=== PATIENT | male | born 1970 | race Caucasian/White ===

== ENCOUNTER 2017-05-25 14:00 | Emergency (ER) | payer BC, OTHER ==
[2017-05-25 14:18] VITALS: BMI 29.0
[2017-05-25 15:57] LABS: MCH 32.8 pg (25.7-33.7); MCHC 34.6 g/dl (32.0-35.9); MEAN CELL VOLUME 94.6 fl (80-96); MEAN PLT VOLUME 8.1 fl (7.5-11.1); PLATELET COUNT 159 K/MM3 (134-434); RDW 12.7 % (11.9-15.9); WHITE BLOOD COUNT 9.6 K/mm3 (4.0-10.0)
--- NOTE | 2017-05-25 16:05 | PDOC ---
History of Present Illness - General Chief Complaint: Pain, Acute Stated Complaint: ABD PAIN,FEVER,CHILLS Time Seen by Provider: 05/25/17 15:20 History Source: Patient - History of Present Illness Initial Comments: 05/25/17 16:27 Patient is a 46 y.o. male with a PMH of Diverticulitis (April 2017 hospitalization for perforated abscess) who presents to our ED today c/o subjective fever and LLQ abdominal pain that he noticed when he woke up @ 10 a.m. Patient denies any associated nausea/vomiting or diarrhea. Patient notes since his discharge he has been slowing advancing his diet -- toleating solid foods as of last night (pork chops and corn). NKDA Surgical: Tonsillectomy (childhood) Social: denies cigarettes, 3-4 beers nightly, denies recreational drugs PMD: Dr. Fish Past History - Past Medical History Allergies/Adverse Reactions: Allergies Allergy/AdvReac Type Severity Reaction Status Date / Time No Known Allergies Allergy Verified 05/25/17 14:16 Home Medications: Ambulatory Orders No Home Medications 0 dose .ROUTE UTDICT 07/08/12 Levofloxacin [Levaquin -] 500 mg PO DAILY #7 tablet 05/25/17 Metronidazole [Flagyl -] 500 mg PO BID #14 tablet 05/25/17 COPD: No GI Disorders: Yes (Diverticulitis) - Suicide/Smoking/Psychosocial Hx Smoking Status: No Smoking History: Never smoked Number of Cigarettes Smoked Daily: 0 Information on smoking cessation initiated: No Hx Alcohol Use: Yes (SOCIAL) Drug/Substance Use Hx: No Substance Use Type: None Review of Systems - Review of Systems Constitutional: Yes: Chills, Fever Respiratory: No: Shortness of Breath Cardiac (ROS): No: Chest Pain ABD/GI: Yes: Abdominal cramping. No: Constipated, Diarrhea, Rectal Bleeding, Vomiting : No: Burning, Dysuria *Physical Exam - Vital Signs Last Vital Signs Temp Pulse Resp BP Pulse Ox 100.4 F H 117 H 19 110/74 100 05/25/17 14:16 05/25/17 14:16 05/25/17 14:16 05/25/17 14:16 05/25/17 15:11 - Physical Exam General Appearance: Yes: Nourished, Appropriately Dressed Neck: positive: Trachea midline, Supple Respiratory/Chest: positive: Lungs Clear, Normal Breath Sounds. negative: Labored Respiration, Rapid RR Cardiovascular: positive: S1, S2. negative: Edema, JVD Gastrointestinal/Abdominal: positive: Normal Bowel Sounds, Soft, Tenderness ( midline LQ tenderness on deep palpation). negative: Distended, Guarding, Hernia , Mass Musculoskeletal: negative: CVA Tenderness (R), CVA Tenderness (L) Extremity: positive: Normal Capillary Refill, Normal Inspection Neurologic: positive: Fully Oriented, Alert ED Treatment Course - LABORATORY CBC & Chemistry Diagram: 05/25/17 15:53 05/25/17 15:53 Medical Decision Making - Medical Decision Making 05/25/17 16:51 Patient is a 46 y.o. male with a PMH of diverticulitis w/perforated abscess ( April 2017) who presents with subjective fever and acute onset of midline, lower quadrant abdominal pain. On PE patient is febrile with some midline LQ tenderness on deep palpation. As patient has recent h/o diverticulitis w/ abscess, clinical suspicion for diverticulitis vs. gastritis (less likely given fever) PLAN: 1. CBC, CMP, Lipase, Lactate 2. CT Abdomen w/PO + IV contrast Reassess 05/25/17 19:02 At time of signout - read pending on CT, wet read shows some possible inflammation (diverticulitis) - no appreciable abscess. Patient signed out to Dr. Garvey (Attending) as no resident overnight due to conference tomorrow. *DC/Admit/Observation/Transfer Diagnosis at time of Disposition: Diverticulitis - Discharge Dispostion Disposition: HOME Condition at time of disposition: Stable - Prescriptions Prescriptions: Levofloxacin [Levaquin -] 500 mg PO DAILY #7 tablet Metronidazole [Flagyl -] 500 mg PO BID #14 tablet - Referrals Referrals: Mago Fish MD [Primary Care Provider] - - Patient Instructions Printed Discharge Instructions: DI for Diverticulitis Additional Instructions: Please follow up with Dr. Fish. Call him tomorrow for follow up appointment. He advised to a liquid diet for three days and increase as tolerated. Return if any problems. Avoid alcohol or anything alcohol when taking Flagyl. - Post Discharge Activity
[2017-05-25 16:23] LABS: ANION GAP 12 (8-16); BILIRUBIN,TOTAL 1.3 mg/dL (0.2-1.0); CALCIUM 9.1 mg/dL (8.5-10.1); CO2 25 mmol/L (21-32); CREATININE 0.9 mg/dL (0.7-1.3); GLUCOSE,RANDOM 96 mg/dL (74-106); SGOT/AST 22 U/L (15-37); SGPT/ALT 49 U/L (12-78)
[2017-05-25 16:24] LABS: ALK PHOS 56 U/L (45-117)
[2017-05-25 18:49] LABS: URINE APPEARANCE CLEAR; URINE BILIRUBIN NEGATIVE (NEGATIVE); URINE BLOOD NEGATIVE (NEGATIVE); URINE COLOR DKYELLOW; URINE GLUCOSE (UA) NEGATIVE (NEGATIVE); URINE KETONE NEGATIVE (NEGATIVE); URINE LEUK ESTERASE NEGATIVE (NEGATIVE); URINE NITRITE NEGATIVE (NEGATIVE); URINE PROTEIN NEGATIVE (NEGATIVE); URINE UROBILINOGEN NEGATIVE mg/dL (0.2-1.0)
--- NOTE | 2017-05-25 19:30 | PDOC ---
Attending Attestation - Resident Resident Name: Concha Waddell - ED Attending Attestation I have performed the following: I have examined & evaluated the patient, The case was reviewed & discussed with the resident, I agree w/resident's findings & plan, Exceptions are as noted - HPI HPI: 05/25/17 19:25 46 M with h/o diverticulitis c/b abscess and perf 04/2017, s/p course of abx, presenting today with fevers and LLQ pain. Pt states that his symptoms subsided with antibiotics, and he was gradually advancing his diet. Yesterday, he had a meal of pork chops, which he is worried may have exacerbated his symptoms. Pain began this morning with no associated N/V. No diarrhea. - Physicial Exam PE: 05/25/17 19:29 "GENERAL: Awake, alert, and fully oriented, in no acute distress HEAD: No signs of trauma EYES: PERRLA, EOMI, sclera anicteric, conjunctiva clear ENT: Auricles normal inspection, hearing grossly normal, nares patent, oropharynx clear without exudates. Moist mucosa NECK: Nontender, no stepoffs, Normal ROM, supple, no lymphadenopathy, JVD, or masses LUNGS: Breath sounds equal, clear to auscultation bilaterally. No wheezes, and no crackles HEART: Regular rate and rhythm, normal S1 and S2, no murmurs, rubs or gallops ABDOMEN: +LLQ tenderness, normoactive bowel sounds. No guarding, no rebound. No masses EXTREMITIES: Normal range of motion, no edema. No clubbing or cyanosis. No cords, erythema, or tenderness NEUROLOGICAL: Cranial nerves II through XII intact. 5/5 strength and sensation in all extremities, Normal speech, normal gait SKIN: Warm, Dry, normal turgor, no rashes or lesions noted. " - Medical Decision Making 05/25/17 19:30 46 M with recent diverticulitis c/b abscess and perf, presenting with recurrent LLQ pain. COncerning for recurrent diverticulitis vs abscess vs perf. Pt non- toxic appearing. - Labs, T&S, coags - CT abd/pelvis - IVF - Surgery consult 05/25/17 19:56 Pt signed out to oncoming attending at 7PM. Dispo pending CT abdomen/pelvis and possible surgical evaluation. Case discussed in detail with oncoming Emergency Physician including history, physical exam and ancillary studies. Oncoming Emergency Physician has assumed care for the patient and will complete the evaluation and treatment. Patient is aware of the plan.
[2017-05-25 19:45] VITALS: BP 121/76; PULSE 103; TEMP 99
[2017-05-25 19:47] LABS: INR 1.03 (0.82-1.09); PROTHROMBIN TIME (PATIENT) 11.6 SEC (9.98-11.88)
[2017-05-25] MEDS ORDERED: metroNIDAZOLE 250 MG TABLET PO ONE (20:14)
[2017-05-25] MEDS ORDERED: LEVOFLOXACIN 500 MG TABLET (FP) PO ONE (20:14)
[2017-05-25] MEDS ORDERED: metroNIDAZOLE 250 MG TABLET ONE (20:16)
[2017-05-25] MEDS ORDERED: LEVOFLOXACIN 500 MG TABLET (FP) ONE (20:16)
--- NOTE | 2017-05-25 20:18 | PDOC ---
*Physical Exam - Vital Signs Last Vital Signs Temp Pulse Resp BP Pulse Ox 99 F 103 H 18 121/76 95 05/25/17 19:44 05/25/17 19:44 05/25/17 19:44 05/25/17 19:44 05/25/17 19:44 ED Treatment Course - LABORATORY CBC & Chemistry Diagram: 05/25/17 15:53 05/25/17 15:53 - ADDITIONAL ORDERS Additional order review: Laboratory Results 05/25/17 05/25/17 05/25/17 18:35 15:53 15:53 PT with INR 11.60 INR 1.03 PTT (Actin FS) 31.5 Sodium Potassium Chloride Carbon Dioxide Anion Gap BUN Creatinine Creat Clearance w eGFR Random Glucose Lactic Acid Calcium Total Bilirubin AST ALT Alkaline Phosphatase Total Protein Albumin Lipase Urine Color Dkyellow Urine Appearance Clear Urine pH 5.0 Ur Specific [place] 1.021 Urine Protein Negative Urine Glucose (UA) Negative Urine Ketones Negative Urine Blood Negative Urine Nitrite Negative Urine Bilirubin Negative Urine Urobilinogen Negative 05/25/17 05/25/17 05/25/17 15:53 15:53 15:53 PT with INR INR PTT (Actin FS) Sodium 140 Potassium 3.6 Chloride 103 Carbon Dioxide 25 Anion Gap 12 BUN 13 Creatinine 0.9 Creat Clearance w eGFR > 60 Random Glucose 96 Lactic Acid 1.1 Calcium 9.1 Total Bilirubin 1.3 H AST 22 ALT 49 Alkaline Phosphatase 56 Total Protein 7.0 Albumin 4.0 Lipase 180 Urine Color Urine Appearance Urine pH Ur Specific [place] Urine Protein Urine Glucose (UA) Urine Ketones Urine Blood Urine Nitrite Urine Bilirubin Urine Urobilinogen 05/25/17 15:53 RBC 4.42 MCV 94.6 MCHC 34.6 RDW 12.7 MPV 8.1 Neutrophils % No Result Required. Lymphocytes % No Result Required. *DC/Admit/Observation/Transfer Diagnosis at time of Disposition: Diverticulitis - Discharge Dispostion Disposition: HOME Condition at time of disposition: Stable Admit: No - Referrals Referrals: Mago Fish MD [Primary Care Provider] - - Patient Instructions Printed Discharge Instructions: DI for Diverticulitis Additional Instructions: Please follow up with Dr. Fish. Call him tomorrow for follow up appointment. He advised to a liquid diet for three days and increase as tolerated. Return if any problems. Avoid alcohol or anything alcohol when taking Flagyl. - Post Discharge Activity
[2017-05-25 22:45] LABS: URINE LEUK ESTERASE NEGATIVE (NEGATIVE)
[2017-05-25 23:24] LABS: PLATELET ESTIMATE ADEQUATE; TOTAL CELLS COUNTED 100
== END 2017-05-25 20:27 | disposition home or self-care (01) ==
LOC: JER 14:00
DX: K57.92 Diverticulitis of intestine, part unspecified, without perforation or abscess without bleeding (principal)
CPT/HCPCS: 36415; 74177-TC; 80053; 81003; 83605; 83690; 85025; 85610; 85730; 87040; 99285-25

== ENCOUNTER 2018-06-02 09:10 | Emergency (ER) | payer OTHER ==
[2018-06-02 09:19] VITALS: BP 125/98; TEMP 98.5; BMI 29.0
[2018-06-02] MEDS ORDERED: diazePAM 5 MG TABLET PO ONE (09:42)
[2018-06-02] MEDS ORDERED: KETOROLAC TROMETHAMINE 60 MG/2 ML VIAL IM ONE (09:42)
[2018-06-02] MEDS ORDERED: KETOROLAC TROMETHAMINE 60 MG/2 ML VIAL ONE (09:43)
[2018-06-02] MEDS ORDERED: diazePAM 5 MG TABLET ONE (09:43)
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
[2018-06-02 10:55] VITALS: PULSE 96
== END 2018-06-02 11:01 | disposition home or self-care (01) ==
LOC: JERFT 09:10
PROC: 3E0233Z Introduction of Anti-inflammatory into Muscle, Percutaneous Approach (ICD-10-PCS; principal; 2018-06-02)
DX: S39.82XA Other specified injuries of lower back, initial encounter (principal); F43.8 Other reactions to severe stress; F41.9 Anxiety disorder, unspecified; Y35.811A Legal intervention involving manhandling, law enforcement official injured, initial encounter; Y93.89 Activity, other specified; Y92.89 Other specified places as the place of occurrence of the external cause; Y99.0 Civilian activity done for income or pay
CPT/HCPCS: 99281-25

== ENCOUNTER 2018-08-29 14:59 | Emergency (ER) | payer OTHER ==
[2018-08-29 15:27] VITALS: BP 129/84; PULSE 77; TEMP 98; BMI 27.7
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
== END 2018-08-29 16:07 | disposition home or self-care (01) ==
LOC: JERFT 14:59
DX: S83.8X1A Sprain of other specified parts of right knee, initial encounter (principal); S86.811A Strain of other muscle(s) and tendon(s) at lower leg level, right leg, initial encounter; Y35.811A Legal intervention involving manhandling, law enforcement official injured, initial encounter; Y93.89 Activity, other specified; Y92.488 Other paved roadways as the place of occurrence of the external cause; Y99.0 Civilian activity done for income or pay
CPT/HCPCS: 99281-25